=== PATIENT | female | born 1985 | race Two or more races ===

== ENCOUNTER 2017-01-12 18:31 | Emergency (ER) | payer MEDICAID ==
[~2017-01-12] VITALS: Ht 162.6 cm; Wt 68.9 kg
[~2017-01-12 18:31] MED LIST: AZITHROMYCIN250 MG ORAL; CEPHALEXIN500 MG ORAL; GUAIFENESIN-CO118 M1 ORAL; NYSTATIN CREAM15 GM TOPIC; SILVADENE CREAM50 GM TOP
[2017-01-12 18:34] VITALS: BP 131/90
[2017-01-12] MEDS ORDERED: AUGMENTIN 875-1 EAC1 ORAL (18:50)
[2017-01-12] MEDS ORDERED: PREDNISONE50 MG ORAL (18:50)
--- NOTE | 2017-01-12 18:51 | Emergency Room Report ---
History of Present Illness General Chief Complaint: Sore Throat Source: Patient Present Illness HPI 31 y/o female c/o sore throat and right ear pain x 2 days. Assoc sxs include sore throat, fever, and ear pain. Not taking any medications currently. Worse with swallowing and no relieving factors. Denies any current n/v/f/c/d, abd pain , back pain, neck pain, photophobia, phonophobia, CP, SOB or headache. Allergies: Coded Allergies: No Known Allergies (Unverified , 06/03/15) Patient History Past Medical History: see triage record Past Surgical History: none Pertinent Family History: none Last Menstrual Period: 3 days Now: No Immunizations: UTD Reviewed Nursing Documentation: PMH: Agreed, PSxH: Agreed Nursing Documentation-PMH Past Medical History: No History, Except For Hx Gastrointestinal Problems: Yes - Hemorrhoid Review of Systems All Other Systems: negative except mentioned in HPI Physical Exam Vital Signs Date Time Temp Pulse Resp B/P Pulse Ox O2 Delivery O2 Flow Rate FiO2 01/12/17 18:34 98.1 87 19 131/90 98 Room Air Sp02 EP Interpretation: reviewed, normal General Appearance: no apparent distress, alert, GCS 15, non-toxic Head: normocephalic, atraumatic Eyes: bilateral eye PERRL, bilateral eye normal inspection ENT: hearing grossly normal, no angioedema, normal voice, TMs + canals normal, uvula midline, pharyngeal erythema, tonsillar exudate Neck: full range of motion, supple/symm/no masses Respiratory: chest non-tender, lungs clear, normal breath sounds, speaking full sentences Cardiovascular #1: regular rate, rhythm, no edema Neurologic: alert, oriented x3, responsive, motor strength/tone normal, sensory intact, speech normal Skin: normal color, no rash, warm/dry, well hydrated Medical Decision Making PA Attestation Dr. Siddiqui is my supervising physician with whom patient management has been discussed with. Diagnostic Impression: Primary Impression: Pharyngitis Qualified Codes: J02.0 - Streptococcal pharyngitis ER Course Pt. presents to the ED c/o of sore throat and right ear pain x 2 days Ddx considered but are not limited to viral pharyngitis bacterial pharyngitis peritonsillar abscess tonsils stone and meningitis Vital signs: are WNL, pt. is afebrile H&PE are most consistent with pharyngitis, presumed to be strep ORDERS: none required at this time, the diagnosis is clinical ED INTERVENTIONS: None required at this time. DISCHARGE: At this time pt. is stable for d/c to home. Will provide printed patient care instructions, and any necessary prescriptions. Care plan and follow up instructions have been discussed with the patient prior to discharge. Last Vital Signs Date Time Temp Pulse Resp B/P Pulse Ox O2 Delivery O2 Flow Rate FiO2 01/12/17 18:34 98.1 87 19 131/90 98 Room Air Disposition: HOME, SELF-CARE Condition: Stable Scripts Amoxicillin/Potassium Clav 875-125* (AUGMENTIN 875-125 TABLET*) 1 Each Tablet 1 TAB ORAL TWICE A DAY, #20 TAB Prov: CAMRON THORNE 01/12/17 Prednisone* (PREDNISONE*) 50 Mg Tablet 50 MG ORAL at once for 1 Day, #1 TAB 0 Refills Prov: CAMRON THORNE.Lexis 01/12/17 Patient Instructions: Sore Throat, Strep Throat Additional Instructions: Take medication as directed. Advised patient to use salt water gargle PRN. Advised patient to use chloraseptic as needed for throat pain in addition to APAP Q4H. Patient advised they can take Ibuprofen and Tylenol Q6H together for fever control as well. If sxs worsen or don't improve, please return sooner. Go to the ER if you develop SOB, CP, Rash, photophobia, neck pain, throat swelling occur, go to the ER immediately. CAMRON THORNE January 12, 2017 18:51
[2017-01-12 18:58] VITALS: BP 131/90
== END 2017-01-12 18:58 | disposition home or self-care (01) ==
LOC: EMR 18:50
DX: J02.9 Acute pharyngitis, unspecified (principal)
CPT/HCPCS: 99284

== ENCOUNTER 2017-05-17 10:09 | Emergency (ER) | payer MEDICAID ==
[~2017-05-17] VITALS: Ht 162.6 cm; Wt 61.2 kg
[~2017-05-17 10:09] MED LIST changes: +AUGMENTIN 875-1 EAC1 ORAL; +PREDNISONE50 MG ORAL
[2017-05-17] MEDS ORDERED: NKM (10:29)
--- NOTE | 2017-05-17 10:58 | Emergency Room Report ---
History of Present Illness General Chief Complaint: Upper Respiratory Illness Source: Patient Present Illness HPI 32-year-old female no significant past medical history presenting with fever chills and productive cough. Sore throat. Productive cough with yellow sputum. Has been taking Motrin with some relief. Sick contacts include grandmother at home Allergies: Coded Allergies: No Known Allergies (Unverified , 06/03/15) Patient History Past Medical History: see triage record Past Surgical History: none Pertinent Family History: none Last Menstrual Period: 2 weeks ago Reviewed Nursing Documentation: PMH: Agreed, PSxH: Agreed Nursing Documentation-PMH Past Medical History: No Stated History Hx Gastrointestinal Problems: Yes - Hemorrhoid Review of Systems All Other Systems: negative except mentioned in HPI Physical Exam Vital Signs Date Time Temp Pulse Resp B/P (MAP) Pulse Ox O2 Delivery O2 Flow Rate FiO2 05/17/17 10:25 98.2 91 16 132/90 99 Room Air Sp02 EP Interpretation: reviewed, normal General Appearance: normal inspection, well appearing, no apparent distress, alert, GCS 15, non-toxic Head: normocephalic, atraumatic Eyes: bilateral eye normal inspection, bilateral eye PERRL, bilateral eye EOMI ENT: normal voice, moist mucus membranes, other - Mild erythema posterior pharynx, no exudates Neck: normal inspection, full range of motion, supple Respiratory: normal inspection, lungs clear, normal breath sounds, no respiratory distress, no retraction, no wheezing, speaking full sentences, chest symmetrical Cardiovascular #1: normal inspection, regular rate, rhythm, no edema, normal capillary refill Cardiovascular #2: 2+ radial (R), 2+ radial (L) Gastrointestinal: normal inspection, non tender, soft, non-distended, no guarding Musculoskeletal: normal inspection, back normal, normal range of motion, non- tender Neurologic: normal inspection, alert, oriented x3, responsive, motor strength/ tone normal, sensory intact, normal gait, speech normal Psychiatric: normal inspection, judgement/insight normal, memory normal Skin: normal inspection, normal color, no rash, warm/dry, well hydrated, normal turgor Medical Decision Making Diagnostic Impression: Primary Impression: Upper respiratory infection ER Course 32-year-old female with fever chills and productive cough DDX: Pneumonia versus viral syndrome Plan: Chest x-ray ER course: Patient has remained stable during ED stay. Chest x-ray negative Disposition: Patient is to be discharged to home. Patient is instructed to follow up with their primary care doctor within 5 days. Strict return precautions discussed with patient such as fever, chills, worsening/severe shortness of breath, nausea, vomiting, which may indicate severe illness. Patient verbalizes understanding and agrees with plan. Please note that this Emergency Department Report was dictated using [employer] manager technology software, occasionally this can lead to erroneous entry secondary to interpretation by the dictation equipment Chest X-Ray Diagnostic Results Chest X-Ray Diagnostic Results : Chest X-Ray Ordered: Yes Indication: Shortness of Breath EP Interpretation: Yes Interpretation: no consolidation, no effusion, no pneumothorax, no acute cardiopulmonary disease Impression: No acute disease Electronically Signed by: Electronically signed by Candace Alvarez MD Last Vital Signs Date Time Temp Pulse Resp B/P (MAP) Pulse Ox O2 Delivery O2 Flow Rate FiO2 05/17/17 10:25 98.2 91 16 132/90 99 Room Air Disposition: HOME, SELF-CARE Condition: Improved Patient Instructions: Upper Respiratory Infection, Adult Candace Alvarez M.D. May 17, 2017 10:58
[2017-05-17 11:15] VITALS: BP 132/90
--- NOTE | 2017-05-17 11:20 | Diagnostic Imaging Report ---
Indication: Dyspnea Comparison: None A single view chest radiograph was obtained. Findings: Cardiomediastinal appearance is within normal limits for age. Pulmonary vascularity is appropriate. The diaphragmatic contour is smooth and costophrenic angles are sharp. No pleural effusions are identified. The bones are unremarkable. Impression: No acute findings
== END 2017-05-17 11:56 | disposition home or self-care (01) ==
LOC: EMR 11:26
DX: J06.9 Acute upper respiratory infection, unspecified (principal)
CPT/HCPCS: 71010; 99283

== ENCOUNTER 2017-11-22 16:59 | Emergency (ER) | payer MEDICAID ==
[~2017-11-22] VITALS: Ht 160 cm; Wt 68.9 kg
[~2017-11-22 16:59] MED LIST changes: +NKM
[2017-11-22 17:39] LABS: APPEARANCE,URINE SLIGHTLY CLOUDY; BILIRUBIN, URINE NEGATIVE (NEGATIVE); COLOR,URINE PALE YELLOW; GLUCOSE, URINE (UA) NEGATIVE (NEGATIVE); KETONES,URINE NEGATIVE (NEGATIVE); LEUKOCYTE ESTERASE ,URINE 1+ (NEGATIVE); NITRITE,URINE NEGATIVE (NEGATIVE); PH,URINE 7 (4.5-8.0); PROTEIN,URINE 1+ (NEGATIVE); UROBILINOGEN,URINE NORMAL MG/DL (0.0-1.0)
[2017-11-22] MEDS ORDERED: FLAGYL500 MG ORAL (18:30)
[2017-11-22] MEDS ORDERED: IBUPROFEN600 MG ORAL (18:30)
[2017-11-22 18:34] VITALS: BP 142/86
--- NOTE | 2017-11-22 19:44 | Emergency Room Report ---
History of Present Illness General Chief Complaint: Vaginal Source: Patient Present Illness HPI The patient is a 33-year-old female presenting for mid lower left lower abdominal pain for the past 2 days. She also admits to a thin white discharge with a foul odor. Pain 4/10 dull ache and does not radiate. No known provoking or relieving factors. She denies any other discharge. She denies of the symptoms including nausea, vomiting, fever, chills, back pain, dysuria Allergies: Coded Allergies: No Known Allergies (Unverified , 06/03/15) Patient History Past Medical History: see triage record Pertinent Family History: none Last Menstrual Period: 11/21/17 Now: No Reviewed Nursing Documentation: PMH: Agreed; PSxH: Agreed Nursing Documentation-PMH Past Medical History: No History, Except For Hx Gastrointestinal Problems: Yes - Hemorrhoid Review of Systems All Other Systems: negative except mentioned in HPI Physical Exam Vital Signs Date Time Temp Pulse Resp B/P (MAP) Pulse Ox O2 Delivery O2 Flow Rate FiO2 11/22/17 17:09 98.4 80 18 150/96 97 Room Air 98.4 Sp02 EP Interpretation: reviewed, normal General Appearance: no apparent distress, alert, GCS 15, non-toxic Head: normocephalic, atraumatic Respiratory: chest non-tender, lungs clear, normal breath sounds, speaking full sentences Cardiovascular #1: regular rate, rhythm, no edema Gastrointestinal: normal bowel sounds, non tender, soft, non-distended, no guarding Musculoskeletal: back normal, gait/station normal, normal range of motion, non- tender Neurologic: alert, oriented x3, responsive, motor strength/tone normal, sensory intact, speech normal Psychiatric: judgement/insight normal, memory normal, mood/affect normal, no suicidal/homicidal ideation Skin: normal color, no rash, warm/dry, well hydrated Medical Decision Making PA Attestation Dr. Alvarez is my supervising physician. Patient management was discussed with my supervising physician Diagnostic Impression: Primary Impression: BV (bacterial vaginosis) ER Course The patient is a 33-year-old female presenting for mid lower left lower abdominal pain Differential diagnoses considered include but not limited to BV, gastritis, pancreatitis, appendicitis, , UTI PE: Afebrile. NAD Abd is soft and non tender. Normal BS. Non distended No CVA tenderness UA: Many squamous cells. Preg neg The patient will be discharged home with prescription for Flagyl and Motrin. ER precautions are given Laboratory Tests Test 11/22/17 17:15 Urine Color Pale yellow Urine Appearance Slightly cloudy Urine pH 7 (4.5-8.0) Urine Specific [place] 1.010 (1.005-1.035) Urine Protein 1+ (NEGATIVE) H Urine Glucose (UA) Negative (NEGATIVE) Urine Ketones Negative (NEGATIVE) Urine Occult Blood 5+ (NEGATIVE) H Urine Nitrite Negative (NEGATIVE) Urine Bilirubin Negative (NEGATIVE) Urine Urobilinogen Normal MG/DL (0.0-1.0) Urine Leukocyte Esterase 1+ (NEGATIVE) H Urine RBC Tntc /HPF (0 - 2) H Urine WBC 2-4 /HPF (0 - 2) Urine Squamous Epithelial Cells Many /LPF (NONE/OCC) H Urine Bacteria Few /HPF (NONE) Urine HCG, Qualitative Negative (NEGATIVE) Lab Results Impression Many squamous cells Otherwise unremarkable Last Vital Signs Date Time Temp Pulse Resp B/P (MAP) Pulse Ox O2 Delivery O2 Flow Rate FiO2 11/22/17 18:34 98.6 68 20 142/86 98 Room Air 98.6 Status: improved Disposition: HOME, SELF-CARE Condition: Improved Scripts Ibuprofen* (MOTRIN*) 600 Mg Tablet 600 MG ORAL Q8H PRN for For Pain, #30 TAB 0 Refills Prov: SAMMY CESPEDES.A. 11/22/17 Metronidazole* (FLAGYL*) 500 Mg Tablet 500 MG ORAL BID, #14 TAB Prov: SAMMY CESPEDES.AYvonne 11/22/17 Patient Instructions: Vaginitis Additional Instructions: I discussed my findings with the patient. All questions and concerns have been answered. Treatment and medication compliance have been addressed. I advised the patient that they need to follow up with PMD in 3-5 days. Return to ED if symptoms worsen, new symptoms arise, or if needed for any reason. Patient verbalized understanding of discharge instructions. SAMMY CESPEDES Nov 22, 2017 19:44
== END 2017-11-22 18:34 | disposition home or self-care (01) ==
LOC: EMR 17:34
DX: N76.0 Acute vaginitis (principal)
CPT/HCPCS: 81003; 81025; 99284

== ENCOUNTER 2018-03-08 04:41 | Emergency (ER) | payer MEDICAID ==
[~2018-03-08] VITALS: Ht 154.9 cm; Wt 64.9 kg
[~2018-03-08 04:41] MED LIST changes: +FLAGYL500 MG ORAL; +IBUPROFEN600 MG ORAL
--- NOTE | 2018-03-08 05:05 | Emergency Room Report ---
History of Present Illness General Chief Complaint: Abdominal Pain Source: Patient, Medical Record (SEVERO RIVERA M.D.) Present Illness HPI This is a 33-year-old female with no past medical history. She presents with chief complaint abdominal pain. Ongoing for last couple days. It was intermittent but much more severe about an hour half ago. It woke her up from sleep. Pain is localized to the lower quadrants but mostly in right lower pelvic area. Pain is 10 out of 10. Worse with movement. Worse with palpation. Nausea but no vomiting. No diarrhea. No hematuria. Never had this problem before. (SEVERO RIVERA M.D.) Allergies: Coded Allergies: No Known Allergies (Unverified , 06/03/15) Patient History Past Medical History: see triage record, old chart reviewed Past Surgical History: other Pertinent Family History: none Social History: Denies: smoking Last Menstrual Period: on period Now: No Immunizations: other Reviewed Nursing Documentation: PMH: Agreed; PSxH: Agreed (SEVERO RIVERA M.D.) Nursing Documentation-PMH Hx Gastrointestinal Problems: Yes - Hemorrhoid (SEVERO RIVERA M.D.) Review of Systems Eye: Denies: eye pain, blurred vision ENT: Denies: ear pain, nose congestion, throat swelling Respiratory: Denies: cough, shortness of breath Cardiovascular: Denies: chest pain, palpitations Gastrointestinal: Reports: abdominal pain; Denies: diarrhea, nausea, vomiting Musculoskeletal: Denies: back pain, joint pain Skin: Denies: rash Neurological: Denies: headache, numbness Endocrine: Denies: increased thirst, increased urine Hematologic/Lymphatic: Denies: easy bruising All Other Systems: negative except mentioned in HPI (SEVERO RIVERA M.D.) Physical Exam Vital Signs Date Time Temp Pulse Resp B/P (MAP) Pulse Ox O2 Delivery O2 Flow Rate FiO2 03/08/18 04:46 98.2 84 18 145/96 98 Room Air 98.2 vitals normal except for high blood pressure Sp02 EP Interpretation: reviewed, normal General Appearance: well appearing, no apparent distress, alert Head: normocephalic, atraumatic Eyes: bilateral eye PERRL, bilateral eye EOMI ENT: hearing grossly normal, normal pharynx Neck: full range of motion, supple, no meningismus Respiratory: chest non-tender, lungs clear, normal breath sounds Cardiovascular #1: regular rate, rhythm, no murmur Gastrointestinal: normal bowel sounds, no mass, no organomegaly, no bruit, non- distended, tenderness - right pelvic/lower quadrant pain Musculoskeletal: back normal, gait/station normal, normal range of motion Psychiatric: mood/affect normal Skin: warm/dry (SEVERO RIVERA M.D.) Medical Decision Making Diagnostic Impression: Primary Impression: Abdominal pain Qualified Codes: R10.30 - Lower abdominal pain, unspecified Additional Impression: Urinary tract infection Qualified Codes: N30.00 - Acute cystitis without hematuria ER Course Pt with abd pain to lower quadrants. labs unremarkable. may have ruptured ovarian cyst, torsion, appy to name a few. ct scan pending. will s/o to Dr. Buckner for final disposition. Lab Results Impression labs unremarkable (SEVERO RIVERA M.D.) ER Course Please see the above note by Dr. Rivera. After treatment here the pain is completely resolved. She states the pain is 0/ 10 at this time. Labs are reviewed. White count was 12,000. There are too numerous to count red cells in the urine and a few white cells. This had been interpreted as a urinary tract infection and Rocephin had been given. In discussing this with the patient, she states she has no symptoms of dysuria. It is possible that the white cells are contamination. I ordered a urine culture to be performed. I discussed with the patient holding off on further antibiotic treatment until cultures returned. CT was basically unremarkable. There were ovarian follicles. No overt cyst was identified. There is some fluid in the pelvis. The patient was given labs and CT results and advised to follow-up with her doctor. She stated she had Motrin at home. She was advised to take Motrin and Tylenol. She was also advised that if the pain were to worsen to return. Patient is stable for outpatient observation and treatment. (Raheel Buckner M.D.) CT/MRI/US Diagnostic Results CT/MRI/US Diagnostic Results : Imaging Test Ordered: abd pelvis Impression FINDINGS: Evaluation of viscera limited without contrast. No urinary tract calculi or hydronephrosis. Suspected ovarian follicles. Pelvic viscera not well characterized on this exam. Trace free fluid, within physiologic limits. No evidence for appendicitis. No bowel obstruction. No evidence for acute pancreatitis or other acute abnormality of the unenhanced solid viscera. Moderate colonic stool. There are few mildly distended small bowel segments but no bowel obstruction. No perienteric inflammatory changes. Hypoventilatory changes at lung bases. (Raheel Buckner M.D.) Last Vital Signs Date Time Temp Pulse Resp B/P (MAP) Pulse Ox O2 Delivery O2 Flow Rate FiO2 03/08/18 04:46 98.2 84 18 145/96 98 Room Air 98.2 Status: improved (SEVERO RIVERA M.D.) Last Vital Signs Date Time Temp Pulse Resp B/P (MAP) Pulse Ox O2 Delivery O2 Flow Rate FiO2 03/08/18 07:38 98.6 74 24 123/72 100 Room Air 98.6 Status: improved (Raheel Buckner M.D.) Disposition: HOME, SELF-CARE Condition: Stable Patient Instructions: Abdominal Pain, Adult SEVERO RIVERA M.D. Mar 08, 2018 05:05 Raheel Buckner M.D. Mar 08, 2018 08:20
[2018-03-08] MEDS ORDERED: Ketorolac 30mg Inj IV ONE (05:15)
[2018-03-08] MEDS ORDERED: Morphine Sulfate 4mg/ml Inj IVP ONE (05:15)
[2018-03-08 05:25] VITALS: BP 140/67
[2018-03-08 05:34] LABS: BASOPHILS % (AUTO) 0.6 % (0.0-2.0); EOSINOPHILS % (AUTO) 1.1 % (0.0-3.0); HEMATOCRIT 42.1 % (37.0-47.0); HEMOGLOBIN 15.2 G/DL (12.0-16.0); LYMPHOCYTES % (AUTO) 28.5 % (20.0-45.0); MEAN CORPUSCULAR VOLUME 89 FL (80-99); MONOCYTES % (AUTO) 8.9 % (1.0-10.0); NEUTROPHILS % (AUTO) 60.9 % (45.0-75.0); PLATELET COUNT 235 K/UL (150-450); RED BLOOD COUNT 4.74 M/UL (4.20-5.40); RED CELL DISTRIBUTION WIDTH 10.3 % (11.6-14.8)
[2018-03-08 05:40] LABS: ANION GAP 6 mmol/L (5-15); BLOOD UREA NITROGEN 8 mg/dL (7-18); CALCIUM 9.5 MG/DL (8.5-10.1); CARBON DIOXIDE 27 MMOL/L (21-32); CHLORIDE 103 MMOL/L (98-107); CREATININE 0.7 MG/DL (0.55-1.30); POTASSIUM 3.6 MMOL/L (3.5-5.1); SODIUM 136 MMOL/L (136-145)
[2018-03-08 05:45] LABS: ALANINE AMINOTRANSFERASE 29 U/L (12-78); ALBUMIN 3.7 G/DL (3.4-5.0); ALBUMIN/GLOBULIN RATIO 0.8 (1.0-2.7); ALKALINE PHOSPHATASE 73 U/L (46-116); ASPARTATE AMINO TRANSFERASE 13 U/L (15-37); BILIRUBIN,TOTAL 0.3 MG/DL (0.2-1.0)
[2018-03-08 05:53] LABS: APPEARANCE,URINE SLIGHTLY CLOUDY; BILIRUBIN, URINE NEGATIVE (NEGATIVE); GLUCOSE, URINE (UA) NEGATIVE (NEGATIVE); KETONES,URINE NEGATIVE (NEGATIVE); LEUKOCYTE ESTERASE ,URINE 2+ (NEGATIVE); NITRITE,URINE NEGATIVE (NEGATIVE); PH,URINE 7 (4.5-8.0); PROTEIN,URINE 2+ (NEGATIVE); UROBILINOGEN,URINE NORMAL MG/DL (0.0-1.0)
[2018-03-08 05:56] LABS: COLOR,URINE RED
[2018-03-08] MEDS ORDERED: cefTRIAXone 1 GM in NS 55 ML IVPB ONE (06:15)
--- NOTE | 2018-03-08 07:12 | Diagnostic Imaging Report ---
EXAM: CT Abdomen and Pelvis Without Intravenous Contrast CLINICAL HISTORY: ABD PAIN TECHNIQUE: Axial computed tomography images of the abdomen and pelvis without intravenous contrast. CTDI is 14.79 mGy and DLP is 756.73 mGy-cm. One or more of the following dose reduction techniques were used: automated exposure control, adjustment of the mA and/or kV according to patient size, use of iterative reconstruction technique. COMPARISON: No relevant prior studies available. FINDINGS: Evaluation of viscera limited without contrast. No urinary tract calculi or hydronephrosis. Suspected ovarian follicles. Pelvic viscera not well characterized on this exam. Trace free fluid, within physiologic limits. No evidence for appendicitis. No bowel obstruction. No evidence for acute pancreatitis or other acute abnormality of the unenhanced solid viscera. Moderate colonic stool. There are few mildly distended small bowel segments but no bowel obstruction. No perienteric inflammatory changes. Hypoventilatory changes at lung bases. IMPRESSION: No acute findings. Incidentals, as above.
[2018-03-08 07:34] VITALS: BP 140/67
[2018-03-08 07:38] VITALS: BP 123/72
== END 2018-03-08 07:39 | disposition home or self-care (01) ==
LOC: EMR 05:15
DX: N30.00 Acute cystitis without hematuria (principal); R10.30 Lower abdominal pain, unspecified
CPT/HCPCS: 36415; 74176; 80053; 81003; 81025; 83690; 85025; 99284; J0696; J1885; J2270; J2405

== ENCOUNTER 2018-04-25 12:06 | Emergency (ER) | payer MEDICAID ==
[~2018-04-25] VITALS: Ht 162.6 cm; Wt 67.1 kg
[2018-04-25] MEDS ORDERED: WEIGHT LOSS (12:19)
[2018-04-25] MEDS ORDERED: hydroxycut ORAL (12:20)
--- NOTE | 2018-04-25 12:38 | Emergency Room Report ---
History of Present Illness General Chief Complaint: General Complaint Source: Patient Present Illness HPI patient is a 33-year-old female with no significant past medical history here complaining of 2 months of right shoulder pain after injury at work. She has been seen by her primary doctor and had no x-rays done. Patient had been through physical therapy and reports minimal improvement now complains of intermittent sharp pain on the right shoulder radiating to the right forearm rating gets 3 or 4 out of 10. Avoid tingling and numbness. Range of motion intact. Patient also complains of starting a new diet pill and after starting at few days ago noted noticing pruritus in the face but no angioedema. Eyes fever chills all other URI symptoms of the chest and history of asthma. Allergies: Coded Allergies: No Known Allergies (Unverified , 06/03/15) Patient History Past Medical History: see triage record Past Surgical History: unable to obtain Pertinent Family History: none Last Menstrual Period: 04/16/2018 Now: No Reviewed Nursing Documentation: PMH: Agreed; PSxH: Agreed Nursing Documentation-PMH Past Medical History: No Stated History Hx Gastrointestinal Problems: Yes - Hemorrhoid Review of Systems All Other Systems: negative except mentioned in HPI Physical Exam Vital Signs Date Time Temp Pulse Resp B/P (MAP) Pulse Ox O2 Delivery O2 Flow Rate FiO2 04/25/18 12:12 97.9 94 14 133/88 99 Room Air 97.9 Sp02 EP Interpretation: reviewed, normal General Appearance: normal inspection, well appearing, no apparent distress, alert Head: normocephalic Eyes: bilateral eye normal inspection, bilateral eye PERRL ENT: normal ENT inspection, hearing grossly normal, normal pharynx Neck: normal inspection, supple Respiratory: normal inspection, chest non-tender, no rhonchi, no wheezing Cardiovascular #1: normal inspection, no gallop, no murmur Gastrointestinal: normal inspection, soft, no mass Genitourinary: deferred Musculoskeletal: back normal, non-tender, other - no impingement sign noted on the right shoulder Neurologic: normal inspection, alert, oriented x3 Psychiatric: normal inspection, judgement/insight normal Skin: normal inspection, normal color, no rash, other - No sign of angioedema or allergic reaction Lymphatic: normal inspection, no adenopathy Medical Decision Making PA Attestation All diagnosis and treatment plans are reviewed and discussed with the supervising physician Diagnostic Impression: Primary Impression: Sprain of right shoulder Additional Impression: Allergic reaction caused by a drug ER Course patient is a 33-year-old female with no significant past medical history here complaining of 2 months of right shoulder pain after injury at work. She has been seen by her primary doctor and had no x-rays done. Patient had been through physical therapy and reports minimal improvement now complains of intermittent sharp pain on the right shoulder radiating to the right forearm rating gets 3 or 4 out of 10. Avoid tingling and numbness. Range of motion intact. Patient also complains of starting a new diet pill and after starting at few days ago noted noticing pruritus in the face but no angioedema. Eyes fever chills all other URI symptoms of the chest and history of asthma. Ddx considered but are not limited to right shoulder sprain, allergic reaction caused by medication, nerve impingement right shoulder Vital signs: are WNL, pt. is afebrile H&PE are most consistent with [right shoulder sprain, allergic reaction caused by medication ] ORDERS: lauren Judd ED INTERVENTIONS: None required at this time. DISCHARGE: At this time pt. is stable for d/c to home. Will provide printed patient care instructions, and any necessary prescriptions. Care plan and follow up instructions have been discussed with the patient prior to discharge. follow-up with primary doctor request MRI of right shoulder pain continue physical therapy advised avoid contact with allergens take medication as directed Last Vital Signs Date Time Temp Pulse Resp B/P (MAP) Pulse Ox O2 Delivery O2 Flow Rate FiO2 04/25/18 12:12 97.9 94 14 133/88 99 Room Air 97.9 Disposition: HOME, SELF-CARE Condition: Stable Scripts Loratadine (CLARITIN) 10 Mg Capsule 10 MG ORAL DAILY, #30 CAP Prov: Genevievemogjohnmi,Nahal P.A. 04/25/18 Naproxen* (NAPROXEN*) 500 Mg Tablet 500 MG ORAL TWICE A DAY for 14 Days, #28 TAB Prov: GenevievemogfabioNahal P.A. 04/25/18 Referrals: [facility] (PCP) Patient Instructions: Allergic Rhinitis, Shoulder Sprain Additional Instructions: patient to refrain from strenuous physical activity. Follow-up with primary doctor MRI of right shoulder. Consider physical therapy and going to a chiropractor. Avoid taking diet pills as it is the cause of allergic reaction. Take medications as directed. If palpitation, fever, chills, tingling return to the emergency room Loly Rowan Apr 25, 2018 12:38
[2018-04-25] MEDS ORDERED: NAPROXEN500 M2 ORAL (12:39)
[2018-04-25] MEDS ORDERED: CLARITIN10 M2 ORAL (12:39)
[2018-04-25 12:46] VITALS: BP 133/88
[2018-04-25 12:49] VITALS: BP 133/88
== END 2018-04-25 12:49 | disposition home or self-care (01) ==
LOC: EMR 12:29
DX: S43.401A Unspecified sprain of right shoulder joint, initial encounter (principal); X58.XXXA Exposure to other specified factors, initial encounter; Y93.89 Activity, other specified; Y92.89 Other specified places as the place of occurrence of the external cause; Y99.0 Civilian activity done for income or pay; L29.8 Other pruritus; T50.995A Adverse effect of other drugs, medicaments and biological substances, initial encounter; Y92.019 Unspecified place in single-family (private) house as the place of occurrence of the external cause
CPT/HCPCS: 99283

== ENCOUNTER 2018-11-21 21:04 | Emergency (ER) | payer MEDICAID ==
[~2018-11-21] VITALS: Ht 157.5 cm; Wt 68.0 kg
[~2018-11-21 21:04] MED LIST changes: +CLARITIN10 M2 ORAL; +NAPROXEN500 M2 ORAL; +WEIGHT LOSS; +hydroxycut ORAL
[2018-11-21 21:24] VITALS: BP 133/90
--- NOTE | 2018-11-21 21:27 | NUR ---
ER Nurse Note: Pt came from home c/o cough and chest pain associcated with the cough. Pt stated 5/10 pain when she cough. Cough is dry, intermitten, no phlegm noted. Pt stated the symptoms started 11/20. She took medication but states it is a temporary fix. Pt a&ox4, VSS, no fever, no signs of distress. Lung sound clear in all lobes. Bed in lowest postition, ERMD at pt side, will continue to montior.
[2018-11-21] MEDS ORDERED: TESSALON PERLE100 MG ORAL (21:37)
[2018-11-21] MEDS ORDERED: IBUPROFEN600 MG ORAL (21:37)
--- NOTE | 2018-11-21 21:38 | Emergency Room Report ---
History of Present Illness General Chief Complaint: Upper Respiratory Illness Source: Patient Present Illness [facility] This is a 33-year-old female with no past medical history. She presents with chief complaint of cough, congestion and body aches started last night. Subjective fever and chills. Cough is nonproductive in nature. Denies any abdominal pain. Denies any nausea or vomiting or diarrhea. Had sick contact. Allergies: Coded Allergies: No Known Allergies (Unverified , 06/03/15) Patient History Past Medical History: none, see triage record, old chart reviewed Past Surgical History: none Pertinent Family History: none Social History: Denies: smoking Last Menstrual Period: Now Now: No Immunizations: other Reviewed Nursing Documentation: PMH: Agreed; PSxH: Agreed Nursing Documentation-PMH Hx Gastrointestinal Problems: Yes - Hemorrhoid Review of Systems Constitutional: Reports: chills, fever Eye: Denies: eye pain, blurred vision ENT: Reports: nose congestion, throat pain; Denies: ear pain, throat swelling Respiratory: Reports: cough; Denies: shortness of breath Cardiovascular: Denies: chest pain, palpitations Gastrointestinal: Denies: abdominal pain, diarrhea, nausea, vomiting Musculoskeletal: Denies: back pain, joint pain Skin: Denies: rash Neurological: Denies: headache, numbness Endocrine: Denies: increased thirst, increased urine Hematologic/Lymphatic: Denies: easy bruising All Other Systems: negative except mentioned in HPI Physical Exam Vital Signs Date Time Temp Pulse Resp B/P (MAP) Pulse Ox O2 Delivery O2 Flow Rate FiO2 11/21/18 21:11 99.0 118 20 133/90 95 Room Air vitals were tachycardia Sp02 EP Interpretation: reviewed, normal General Appearance: well appearing, no apparent distress, alert Head: normocephalic, atraumatic Eyes: bilateral eye PERRL, bilateral eye EOMI ENT: hearing grossly normal, normal pharynx Neck: full range of motion, supple, no meningismus Respiratory: chest non-tender, lungs clear, normal breath sounds Cardiovascular #1: regular rate, rhythm, no murmur Gastrointestinal: normal bowel sounds, non tender, no mass, no organomegaly, no bruit, non-distended Musculoskeletal: back normal, gait/station normal, normal range of motion Psychiatric: mood/affect normal Skin: warm/dry Medical Decision Making Diagnostic Impression: Primary Impression: Upper respiratory infection Qualified Codes: J06.9 - Acute upper respiratory infection, unspecified ER Course Patient with a viral illness. No evidence of any bacterial infection. No need for antibiotics. We'll discharge home. Last Vital Signs Date Time Temp Pulse Resp B/P (MAP) Pulse Ox O2 Delivery O2 Flow Rate FiO2 11/21/18 21:24 99.0 100 20 133/90 95 Room Air Status: unchanged Disposition: HOME, SELF-CARE Condition: Stable Scripts Benzonatate* (TESSALON PERLE*) 100 Mg Capsule 100 MG ORAL THREE TIMES A DAY, #20 PERLE Prov: Clemente Blas MD 11/21/18 Ibuprofen* (MOTRIN*) 600 Mg Tablet 600 MG ORAL THREE TIMES A DAY, #30 TAB 0 Refills Prov: Clemente Blas MD 11/21/18 Patient Instructions: Upper Respiratory Infection, Adult Additional Instructions: Increase fluids. Salt water gargle for sore throat. You have a viral infection. Antibiotics do not treat this. Follow-up with your doctor in 7 days. Return if worse. Clemente Blas MD Nov 21, 2018 21:38
--- NOTE | 2018-11-21 21:55 | NUR ---
ER Nurse Note: Pt seen, treated, medically cleared for discharge discharge by ERMD. Discharge instructions and prescriptions given with repeat verbalization by pt. Instructed pt to follow up with primary care physian within one week. Pt a&ox4, VSS, no signs of distress. Pt left with all belongings, with stable gait; left via own transportation.
[2018-11-21 21:56] VITALS: BP 133/90
== END 2018-11-21 21:50 | disposition home or self-care (01) ==
LOC: EMR 21:18
DX: J06.9 Acute upper respiratory infection, unspecified (principal)
CPT/HCPCS: 99283

== ENCOUNTER 2019-05-11 18:17 | Emergency (ER) | payer MEDICAID ==
[~2019-05-11] VITALS: Ht 162.6 cm; Wt 64.9 kg
[~2019-05-11 18:17] MED LIST changes: +TESSALON PERLE100 MG ORAL
--- NOTE | 2019-05-11 18:30 | NUR ---
ED Nurse Note:pt not in wr
--- NOTE | 2019-05-11 18:45 | NUR ---
ED Nurse Note: PT WALKED IN TO ER TODAY FROM HOME. AOX4. PT C/O COUGH, CONGESTION, GENERALIZED BODYACHES, FEVER, CHILLS, AND HEADACHES X 2 WEEKS AGO. PT ALSO C/O RASH TO BILATERAL FEET X 2 WEEKS AGO. NO SIGNS OF RESPIRATORY DISTRESS, RETRACTIONS, OR ACCESSORY MUSCLE USE NOTED. PT ABLE TO SPEAK IN FULL SENTENCES. PT AMBULATORY WITH STEADY GAIT.
--- NOTE | 2019-05-11 19:04 | Emergency Room Report ---
History of Present Illness General Chief Complaint: Upper Respiratory Illness Source: Patient Present Illness HPI 34-year-old female presents to the emergency department complaining of persistent dry cough, sore throat, 8 out of 10 severity body aches and fatigue x1 week. Patient also is reporting multiple insect bites that are itchy and new ones keep appearing. Reports bilateral ear pressure. Pt. denies fevers, chills or swollen tender lymph nodes. Denies lesions/rashes elsewhere on the body. Denies new medications or body washes or creams. Denies swelling of the lips, tongue , throat or airway. Denies wheezing, or shortness of breath. Denies recent travel, recent illness or ill contacts. denies blisters, oral lesions, or sloughing of the skin. Allergies: Coded Allergies: No Known Allergies (Unverified , 06/03/15) Patient History Past Medical History: see triage record Past Surgical History: none Pertinent Family History: none Last Menstrual Period: now Now: No Reviewed Nursing Documentation: PMH: Agreed; PSxH: Agreed Nursing Documentation-PMH Past Medical History: No History, Except For Hx Gastrointestinal Problems: Yes - Hemorrhoid Review of Systems All Other Systems: negative except mentioned in HPI Physical Exam Vital Signs Date Time Temp Pulse Resp B/P (MAP) Pulse Ox O2 Delivery O2 Flow Rate FiO2 05/11/19 18:38 98.2 82 20 156/101 (119) 98 Room Air Sp02 EP Interpretation: reviewed, normal General Appearance: no apparent distress, alert, GCS 15, non-toxic Head: normocephalic, atraumatic Eyes: bilateral eye normal inspection, bilateral eye PERRL ENT: normal ENT inspection, no angioedema, normal voice, TMs + canals normal, uvula midline, moist mucus membranes, nasal congestion, pharyngeal erythema - PND visible, no exudates Neck: full range of motion, no meningismus, no bony tend Respiratory: chest non-tender, lungs clear, normal breath sounds, speaking full sentences, wheezing - very scant expiratory wheeze. Cardiovascular #1: regular rate, rhythm, no edema Musculoskeletal: back normal, gait/station normal, normal range of motion, non- tender Neurologic: alert, oriented x3, responsive, motor strength/tone normal, sensory intact, speech normal, grossly normal Psychiatric: judgement/insight normal Skin: other - Multiple erythematous papules on the Bilateral LE, and the right UE. they are 0.5cm or less in diameter, no appreciable warmth or surrounding erythema. they son, no blisters or vesicles Lymphatic: no adenopathy Medical Decision Making PA Attestation Dr. Haines is my supervising Physician whom patient management has been discussed with. Diagnostic Impression: Primary Impression: Bronchitis Additional Impressions: Post-nasal drainage Insect bites Qualified Codes: S80.869A - Insect bite (nonvenomous), unspecified lower leg, initial encounter; W57.XXXA - Bitten or stung by nonvenomous insect and other nonvenomous arthropods, initial encounter ER Course 34-year-old female presents to the emergency department complaining of persistent dry cough, sore throat, 8 out of 10 severity body aches and fatigue x1 week. Patient also is reporting multiple insect bites that are itchy and new ones keep appearing. Reports bilateral ear pressure. Pt. denies fevers, chills or swollen tender lymph nodes. Denies lesions/rashes elsewhere on the body. Denies new medications or body washes or creams. Denies swelling of the lips, tongue , throat or airway. Denies wheezing, or shortness of breath. Denies recent travel, recent illness or ill contacts. denies blisters, oral lesions, or sloughing of the skin. Ddx considered but are not limited to URI, pneumonia, PE, strep pharyngitis, meningitis, allergic reaction, viral exanthem, bronchitis just to name a few. Vital signs: Pt. is afebrile, the remaining VS are WNL H&PE are most consistent with URI- no meningeal signs, oropharynx is not involved, no evidence of bacterial infection at this time. ST secondary to PND. Rash c/w insect bites-no secondary infection. no suspicion for impending airway compromise or anaphylaxis. ORDERS: none required at this time, the diagnosis is clinical ED INTERVENTIONS: None required at this time. --PT. EDUCATION: Discussed antibiotic resistance with inappropriate prescribing of antibiotics for viral illnesses. Discussed signs and symptoms to indicate viral illness versus bacterial illness. DISCHARGE: At this time pt. is stable for d/c to home. Will provide printed patient care instructions, and any necessary prescriptions. Care plan and follow up instructions have been discussed with the patient prior to discharge. Last Vital Signs Date Time Temp Pulse Resp B/P (MAP) Pulse Ox O2 Delivery O2 Flow Rate FiO2 05/11/19 18:38 98.2 82 20 156/101 (119) 98 Room Air Disposition: HOME, SELF-CARE Condition: Stable Scripts Guaifen/Phenyleph/Acetaminophn (Mucus Relief Sinus Pres & Pain) 1 Each Tablet 1 EACH PO Q6HR, #24 TAB Prov: Christina Garcia 05/11/19 Diphenhydramine Hcl (BENADRYL ALLERGY) 25 Mg Tablet 25 MG PO Q6HR, #20 TAB Prov: Christina Garcia 05/11/19 Hydrocortisone 2% Cream (ANTI-ITCH 2% CREAM) Y Cr 1 APPLIC TP Q6HR, #28 GM Prov: Christina Garcia 05/11/19 Albuterol Sulfate* (ALBUTEROL SULFATE MDI*) 8.5 Gm Hfa.aer.ad 2 PUFF INH Q3H, #1 INH 0 Refills Prov: Christina Garcia 05/11/19 Codeine/Promethazine Hcl* (PROMETHAZINE-CODEINE SYRUP*) 118 Ml Syrup 5 ML ORAL Q6H PRN for For Cough, #120 ML 0 Refills Prov: Christina Garcia 05/11/19 Patient Instructions: Insect Bite, [id number], Upper Respiratory Infection, Adult Additional Instructions: Take medications as directed. Follow up with a Primary Care Provider in 3-5 days for DERMATOLOGY REFERRAL , even if your symptoms have resolved. --Please review list of primary care clinics, if you do not already have a primary care provider Return sooner to ED if new symptoms occur, or current symptoms become worse. Do not drink alcohol, drive, or operate heavy machinery while taking Cough Syrup as this may cause drowsiness. - Please note that this Emergency Department Report was dictated using [employer] worker technology software, occasionally this can lead to erroneous entry secondary to interpretation by the dictation equipment. Christina Garcia May 11, 2019 19:04
[2019-05-11 19:07] VITALS: BP 148/92
[2019-05-11] MEDS ORDERED: ALBUTEROL SULF8.5 GM INH (19:09)
[2019-05-11] MEDS ORDERED: ANTI-ITCH28 G1 TP (19:09)
[2019-05-11] MEDS ORDERED: PROMETHAZINE-C118 M1 ORAL (19:09)
[2019-05-11] MEDS ORDERED: BENADRYL ALLERG25 M1 PO (19:09)
[2019-05-11] MEDS ORDERED: [UNRECOGNIZED DRUG - OTHER] PO (19:09)
[2019-05-11 19:15] VITALS: BP 148/92
--- NOTE | 2019-05-11 19:15 | NUR ---
ER DISCHARGE NOTE: Patient is cleared to be discharged per ERMD, pt is aox4, on room air, with stable vital signs. pt was given dc and prescription instructions, pt was able to verbalize understanding, pt id band removed. pt is able to ambulate with steady gait. pt took all belongings.
== END 2019-05-11 20:00 | disposition home or self-care (01) ==
LOC: EMR 19:16
DX: J40 Bronchitis, not specified as acute or chronic (principal); R09.82 Postnasal drip; S80.862A Insect bite (nonvenomous), left lower leg, initial encounter; S80.861A Insect bite (nonvenomous), right lower leg, initial encounter; S40.861A Insect bite (nonvenomous) of right upper arm, initial encounter; W57.XXXA Bitten or stung by nonvenomous insect and other nonvenomous arthropods, initial encounter; Y92.9 Unspecified place or not applicable
CPT/HCPCS: 99282

== ENCOUNTER 2020-05-13 00:57 | Emergency (ER) | payer MEDICAID ==
[~2020-05-13] VITALS: Ht 167.6 cm; Wt 70.8 kg
[~2020-05-13 00:57] MED LIST changes: +ALBUTEROL SULF8.5 GM INH; +ANTI-ITCH28 G1 TP; +BENADRYL ALLERG25 M1 PO; +PROMETHAZINE-C118 M1 ORAL; +[UNRECOGNIZED DRUG - OTHER] PO
[2020-05-13] MEDS ORDERED: Acetaminophen 500mg (ES) tab ORAL ONE (01:30)
[2020-05-13 01:41] VITALS: BP 157/98
--- NOTE | 2020-05-13 04:57 | Emergency Room Report ---
History of Present Illness General Chief Complaint: Headache Source: Patient Present Illness HPI 35-year-old female presents ED complaining of headache. States that headache started in the evening after getting into an argument. States she has been crying since then. Headache is throbbing, 10 out of 10, nonradiating. Denies photophobia or blurry vision. Denies nausea or vomiting. Denies neck stiffness. No other aggravating relieving factors. Denies any other associated symptoms Allergies: Coded Allergies: No Known Allergies (Unverified , 06/03/15) COVID-19 Screening Contact w/high risk pt: No Experienced COVID-19 symptoms?: No COVID-19 Testing performed ELEVATOR INSPECTOR: No Patient History Past Medical History: other - hemorrhoid Past Surgical History: none Pertinent Family History: none Social History: Denies: smoking, alcohol use, drug use Last Menstrual Period: 05/13/20 Now: No Immunizations: UTD Reviewed Nursing Documentation: PMH: Agreed; PSxH: Agreed Nursing Documentation-PMH Past Medical History: No History, Except For Hx Gastrointestinal Problems: Yes - Hemorrhoid Review of Systems All Other Systems: negative except mentioned in HPI Physical Exam Vital Signs Date Time Temp Pulse Resp B/P (MAP) Pulse Ox O2 Delivery O2 Flow Rate FiO2 05/13/20 01:11 97.2 84 16 161/110 (127) 98 Room Air Sp02 EP Interpretation: reviewed, normal General Appearance: no apparent distress, alert, GCS 15, non-toxic Head: normocephalic, atraumatic Eyes: bilateral eye normal inspection, bilateral eye PERRL ENT: hearing grossly normal, normal pharynx, no angioedema, normal voice Neck: full range of motion, supple, no meningismus, supple/symm/no masses Respiratory: chest non-tender, lungs clear, normal breath sounds, speaking full sentences Cardiovascular #1: regular rate, rhythm, no edema Cardiovascular #2: 2+ carotid (R), 2+ carotid (L), 2+ radial (R), 2+ radial (L) , 2+ dorsalis pedis (R), 2+ dorsalis pedis (L) Gastrointestinal: normal bowel sounds, non tender, soft, non-distended, no guarding, no rebound Rectal: deferred Genitourinary: normal inspection, no CVA tenderness Musculoskeletal: back normal, normal range of motion, gait/station normal, non- tender Neurologic: alert, motor strength/tone normal, oriented x3, sensory intact, responsive, speech normal Psychiatric: judgement/insight normal, memory normal, no suicidal/homicidal ideation, no delusions, anxious Reflexes: 3+ bicep (R), 3+ bicep (L), 3+ tricep (R), 3+ tricep (L), 3+ knee (R) , 3+ knee (L) Skin: no rash Lymphatic: no adenopathy Medical Decision Making Diagnostic Impression: Primary Impression: Headache Qualified Codes: R51 - Headache ER Course Hospital Course 35-year-old female presents to ED complaining of headache Differential diagnoses include: tension headache, migraine, dehydration, intracranial bleed Clinical course Patient placed on stretcher. After initial history and physical I ordered tylenol, motrin and reglan Upon reassessment patient states pain has improved. Patient feels better wishes to go home. I discussed findings with patient. No focal deficits. No nuchal rigidity. No photophobia. Likely secondary to anxiety and crying due to her unpleasant encounter. Patient safe for discharge with close outpatient follow-up. I will provide referrals i. I feel this is a highly complex case requiring extensive working including EKG/Rhythm strip, Xray/CT/US, Blood/urine lab work, repeat exams while in ED, and administration of strong opiates/narcotics for pain control, admission to hospital or close patient follow up. Diagnosis - headache stable and discharged to home with Tylenol, Reglan. f/up with PMD. return to ED if symptoms recur/worsen. Last Vital Signs Date Time Temp Pulse Resp B/P (MAP) Pulse Ox O2 Delivery O2 Flow Rate FiO2 05/13/20 03:03 97.2 05/13/20 01:41 88 16 157/98 98 Room Air Status: improved Disposition: HOME, SELF-CARE Condition: Stable Scripts Metoclopramide Hcl* (REGLAN*) 10 Mg Tablet 10 MG ORAL THREE TIMES A DAY, #15 TAB Prov: Satya Haines MD 05/13/20 Acetaminophen* (TYLENOL EXTRA STRENGTH*) 500 Mg Tablet 500 MG ORAL Q8H PRN for Prn Headache/Temp > 101, #30 TAB 0 Refills Prov: Satya Haines MD 05/13/20 Referrals: NON PHYSICIAN (PCP) Satya Haines MD May 13, 2020 04:57
[2020-05-13] MEDS ORDERED: REGLAN10 MG ORAL (06:17)
[2020-05-13] MEDS ORDERED: TYLENOL EXTRA500 MG ORAL (06:17)
[2020-05-13 06:24] VITALS: BP 127/84
== END 2020-05-13 06:25 | disposition home or self-care (01) ==
LOC: EMR 01:24
DX: R51 Headache (principal)
CPT/HCPCS: 99282